=== PATIENT | male | born 1985 | race Two or more races ===

== ENCOUNTER 2018-06-01 17:46 | Emergency (ER) | payer OTHER ==
[~2018-06-01] VITALS: Ht 175.3 cm; Wt 78.5 kg
[2018-06-01 18:59] VITALS: BP 121/85
[2018-06-01] MEDS: LIDOCAINE W/ EPINEPHRINE 2% INJ 20ML VIAL IJ ONE (19:00)
[2018-06-01] MEDS: cefTRIAXone SOD 500 MG VL IM ONE (19:15)
[2018-06-01] MEDS: LIDOCAINE 1% HCL (LOCAL ANESTH.) INJ 20ML MDV ONE (19:26)
[2018-06-01] MEDS: LIDOCAINE 1% HCL (LOCAL ANESTH.) INJ 20ML MDV ID ONE (20:14)
== END 2018-06-01 20:12 | disposition home or self-care (01) ==
LOC: ER 17:52 → EEVIPCON 17:52 → ER 20:12
DX: S11.91XA Laceration without foreign body of unspecified part of neck, initial encounter (principal); W18.09XA Striking against other object with subsequent fall, initial encounter; Y93.89 Activity, other specified; Y92.89 Other specified places as the place of occurrence of the external cause; Y99.8 Other external cause status
CPT/HCPCS: 12002; 96372; 99283; J0696; J2001